=== PATIENT | female | born 1980 | race Caucasian/White ===

== ENCOUNTER 2020-02-19 05:24 | Inpatient (IN) | payer MEDICAID, SELFPAY ==
[~2020-02-19 05:24] MED LIST: Lactated Ringers 1,000 ML IV SCH; Sodium Chloride 0.9% 10 ML Syringe FLUSH PRN
[2020-02-19] MEDS ORDERED: ceFAZolin 2 GM in Premix Bag 1 BAG IV ONE (05:30)
[2020-02-19] MEDS ORDERED: Citric Acid/Sodium Citrate Solution 30 ML Cup PO ONE (05:30)
[2020-02-19] MEDS ORDERED: Oxytocin/Lactated Ringers 20 UNIT/1,000 ML BAG IV SCH (05:30)
[2020-02-19] MEDS ORDERED: Metoclopramide 10 MG/2 ML SDV IVPUSH ONE (05:30)
[2020-02-19] MEDS ORDERED: Morphine PF 1 MG/ML Amp ONE (07:11)
[2020-02-19] MEDS ORDERED: ceFAZolin 1 GM Vial ONE ×2 (07:11→07:15)
[2020-02-19] MEDS ORDERED: Phenylephrine 1% 10 MG/ML SDV ONE (07:11)
[2020-02-19] MEDS ORDERED: Bupivacaine 0.5% 30 ML SDV ONE (07:13)
[2020-02-19] MEDS ORDERED: Ketorolac 30 MG/ML SDV ONE (07:16)
[2020-02-19] MEDS ORDERED: Oxytocin 10 Units/1 ML SDV ONE (07:16)
[2020-02-19] MEDS ORDERED: Lactated Ringers 1,000 ML ONE (07:18)
[2020-02-19] MEDS ORDERED: diphenhydrAMINE 50 MG/ML SDV IVPUSH PRN ×2 (08:44→10:25)
--- NOTE | 2020-02-19 08:46 | PCM.POSTAN ---
POST ANESTHESIA ASSESSMENT - MENTAL STATUS Mental Status: Alert, Oriented - VITAL SIGNS Vital Signs: Last Vital Signs Temp 36.6 C 02/19/20 05:42 Pulse 87 02/19/20 05:42 Resp 14 02/19/20 05:42 BP 119/73 02/19/20 05:42 Pulse Ox 99 02/19/20 05:42 - RESPIRATORY Respiratory Status: Respiratory Rate WNL, Airway Patent, O2 Saturation Stable - CARDIOVASCULAR CV Status: Pulse Rate WNL, Blood Pressure Stable - GASTROINTESTINAL GI Status: No Symptoms - PAIN Pain Score: 0 - POST OP HYDRATION Hydration Status: Adequate & Stable - OBSERVATIONS Free Text/Narrative:: no anesthesia complications noted
--- NOTE | 2020-02-19 08:47 | PCM.OPNOTE ---
- General Post-Op/Procedure Note Date of Surgery/Procedure: 02/19/20 Operative Procedure(s): repeat section Findings: Viable female weight 3110 g Apgars 9 at 1 minute and 9 at 5 minutes at 0809, uterus tubes and ovaries no significant adhesions Pre Op Diagnosis: Prior desires repeat, 39+ week intrauterine Post-Op Diagnosis: Same Anesthesia Technique: Spinal Primary Surgeon: Miranda Degroot Anesthesia Provider: Ifeanyi Roach Sort Operations Supervisor: Inés Nazario Reason Sort Operations Supervisor Was Necessary: Safety, retraction Pathology: none Fluid Replacement, Intraop: 2,600 Output, Urine Amount: 40 EBL in mLs: 500 Complications: None Condition: Good Free Text/Narrative:: The patient was taken to the operating room where spinal anesthesia was dosed to surgical levels without difficulty. The patient was prepped and draped in the usual sterile fashion in the dorsal supine position with a leftward tilt. A Pfannenstiel skin incision was made with the scalpel and carried through to the underlying layer of fascia. The fascia was incised in the midline and extended laterally using Nunez scissors. Arnold clamps were used to elevate the superior aspect of the fascial incision, which was elevated, and the underlying rectus muscles were dissected off bluntly and using Nunez scissors. Attention was then turned to the inferior aspect of the fascial incision, which in similar fashion was grasped with Arnold clamps, elevated, and the underlying rectus muscles were dissected off bluntly and using the nunez. The rectus muscles were dissected in the midline. The peritoneum was entered bluntly; this incision was extended superiorly and inferiorly with good visualization of the bladder. The bladder blade was inserted. The vesicouterine peritoneum was identified and entered sharply using Metzenbaum scissors. This incision was extended laterally and the bladder flap was created digitally. The bladder blade was reinserted. The lower uterine segment was incised in a transverse fashion using the scalpel and with digital traction. Clear fluid was noted. The was subsequently delivered by flexing the head to the incision. Body and shoulders followed without difficulty. The cord was clamped and cut. The was subsequently handed to the awaiting radio control crane operator whose presence had been requested.. The placenta was delivered spontaneously intact with a three-vessel cord noted. The uterus was exteriorized and cleared of all clots and debris. The uterine incision was repaired in 2 layers using 0 monocryl. Hemostasis was visualized. Hemostasis was visualized bilaterally. The uterus was returned to the abdomen. The uterine incision was reexamined and one small area of bleeding which was rendered hemostatic with a single [id number] suture. It was then reinspected and was noted to be hemostatic. The pelvis was copiously irrigated. The fascia was closed with 1 PDS suture, and the skin was closed with 3-0 monocryl. Sponge, lap, and instrument counts were correct x2. The patient was stable at the completion of the procedure and was subsequently transferred to the recovery room in stable condition.
--- NOTE | 2020-02-19 08:47 | PCM.PREANE ---
Preanesthetic Assessment - Procedure Proposed Procedure: Repeat - Anesthesia/Transfusion/Family Hx Anesthesia History: Prior Anesthesia Without Reaction Family History of Anesthesia Reaction: No Transfusion History: No Prior Transfusion(s) - Review of Systems General: No Symptoms Pulmonary: Shortness of Breath (due to baby) Cardiovascular: Dyspnea on Exertion (with ) Gastrointestinal: No Symptoms Neurological: No Symptoms Other: Reports: None - Physical Assessment NPO Status Date: 02/18/20 NPO Status Time: 23:00 Vital Signs: Last Vital Signs Temp 36.6 C 02/19/20 05:42 Pulse 87 02/19/20 05:42 Resp 14 02/19/20 05:42 BP 119/73 02/19/20 05:42 Pulse Ox 99 02/19/20 05:42 Height: 1.52 m Weight: 90.492 kg ASA Class: 2 Mental Status: Alert & Oriented x3 Airway Class: Mallampati = 1 Dentition: Reports: Normal Dentition Thyro-Mental Finger Breadths: 3 Mouth Opening Finger Breadths: 3 ROM/Head Extension: Full Lungs: Clear to Auscultation, Normal Respiratory Effort Cardiovascular: Regular Rate, Regular Rhythm - Lab Values: Laboratory Last Values WBC 12.35 K/mm3 (3.98-10.04) H 02/19/20 05:40 RBC 4.13 M/mm3 (3.98-5.22) 02/19/20 05:40 Hgb 13.2 gm/dl (11.2-15.7) 02/19/20 05:40 Hct 39.1 % (34.1-44.9) 02/19/20 05:40 MCV 94.7 fl (79.4-94.8) 02/19/20 05:40 MCH 32.0 pg (25.6-32.2) 02/19/20 05:40 MCHC 33.8 g/dl (32.2-35.5) 02/19/20 05:40 RDW Std Deviation 42.7 fL (36.4-46.3) 02/19/20 05:40 Plt Count 251 K/mm3 (182-369) 02/19/20 05:40 MPV 11.1 fl (9.4-12.3) 02/19/20 05:40 Neut % (Auto) 68.6 % (34.0-71.1) 02/19/20 05:40 Lymph % (Auto) 19.0 % (19.3-51.7) L 02/19/20 05:40 Sharkey % (Auto) 10.0 % (4.7-12.5) 02/19/20 05:40 Eos % (Auto) 1.8 (0.7-5.8) 02/19/20 05:40 Baso % (Auto) 0.2 % (0.1-1.2) 02/19/20 05:40 Neut # (Auto) 8.47 K/mm3 (1.56-6.13) H 02/19/20 05:40 Lymph # (Auto) 2.35 K/mm3 (1.18-3.74) 02/19/20 05:40 Sharkey # (Auto) 1.23 K/mm3 (0.24-0.36) H 02/19/20 05:40 Eos # (Auto) 0.22 K/mm3 (0.04-0.36) 02/19/20 05:40 Baso # (Auto) 0.03 K/mm3 (0.01-0.08) 02/19/20 05:40 COVID-19 PCR Not detected (NOT DETECT) 02/17/20 10:30 - Allergies Allergies/Adverse Reactions: Allergies Allergy/AdvReac Type Severity Reaction Status Date / Time No Known Allergies Allergy Verified 04/30/14 13:32 CDT - Anesthesia Plan Pre-Op Medication Ordered: Antacids - Acknowledgements Anesthesia Type Planned: Spinal Pt an Appropriate Candidate for the Planned Anesthesia: Yes Alternatives and Risks of Anesthesia Discussed w Pt/Guardian: Yes Pt/Guardian Understands and Agrees with Anesthesia Plan: Yes PreAnesthesia Questionnaire HEENT History: Reports: None Gastrointestinal History: Reports: Chronic Constipation, GERD 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 Hx of Chlamydia as a teenager - Infectious Disease History Infectious Disease History: Reports: Chicken Pox - Past Surgical History HEENT Surgical History: Reports: Oral Surgery, Tonsillectomy GI Surgical History: Reports: None - SUBSTANCE USE Smoking Status *Q: Current Every Day Smoker Days Per Week of Alcohol Use: 0 Recreational Drug Use History: No - HOME MEDS Home Medications: Home Meds Nicotine [Nicoderm CQ] 14 mg TD DAILY 02/19/20 [History] Harrold-3S/DHA/Epa/Fish Oil [Harrold-3 Fish Oil 1,000 mg Sfgl] 500 mg PO BID 02/19/20 [History] polyethylene glycoL 3350 [MiraLAX] 17 gm PO DAILY 02/19/20 [History] - CURRENT (IN HOUSE) MEDS Current Meds: Current Medications Diphenhydramine HCl (Benadryl) 25 mg IVPUSH Q6H PRN PRN Reason: Itching Oxytocin/Lactated Ringer's (Pitocin In Lr 20 Units/1,000 Ml) 20 unit in 1,000 mls @ 500 mls/hr IV TITRATE GABRIELA; Protocol Lactated Ringer's (Ringers, Lactated) 1,000 mls @ 125 mls/hr IV ASDIRECTED GABRIELA Last Admin: 02/19/20 06:01 Dose: 900 mls/hr Documented by: Sodium Chloride (Saline Flush) 10 ml FLUSH ASDIRECTED PRN PRN Reason: Keep Vein Open Discontinued Medications Bupivacaine HCl (Marcaine 0.5%) Confirm Administered Dose 30 ml .ROUTE .STK-MED ONE Stop: 02/19/20 07:14 Cefazolin Sodium (Ancef) Confirm Administered Dose 2 gm .ROUTE .STK-MED ONE Stop: 02/19/20 07:12 Cefazolin Sodium (Ancef) Confirm Administered Dose 2 gm .ROUTE .STK-MED ONE Stop: 02/19/20 07:16 Citric Acid/Sodium Citrate (Bicitra Solution) 30 ml PO ONETIME ONE Stop: 02/19/20 05:31 Last Admin: 02/19/20 07:26 Dose: 30 ml Documented by: Cefazolin Sodium/Dextrose 2 gm (/ Premix) 50 mls @ 100 mls/hr IV ONETIME ONE Stop: 02/19/20 05:59 Lactated Ringer's (Ringers, Lactated) Confirm Administered Dose 1,000 mls @ as directed .ROUTE .STK-MED ONE Stop: 02/19/20 07:19 Ketorolac Tromethamine (Toradol) Confirm Administered Dose 30 mg .ROUTE .STK-MED ONE Stop: 02/19/20 07:17 Metoclopramide HCl (Reglan) 10 mg IVPUSH ONETIME ONE Stop: 02/19/20 05:31 Last Admin: 02/19/20 07:20 Dose: 10 mg Documented by: Morphine Sulfate (Duramorph Pf) Confirm Administered Dose 1 mg .ROUTE .STK-MED ONE Stop: 02/19/20 07:12 Oxytocin (Pitocin) Confirm Administered Dose 10 unit .ROUTE .STK-MED ONE Stop: 02/19/20 07:17 Phenylephrine HCl (Luis Felipe-Synephrine) Confirm Administered Dose 10 mg .ROUTE .STK- MED ONE Stop: 02/19/20 07:12
[2020-02-19] MEDS ORDERED: Naloxone 0.4 MG/ML SDV IVPUSH PRN (10:25)
[2020-02-19] MEDS ORDERED: ePHEDrine 50 MG/ML SDV IVPUSH PRN (10:25)
[2020-02-19] MEDS ORDERED: Dextrose 5%-Lactated Ringers 1,000 ML IV SCH ×2 (10:25→19:45)
[2020-02-19] MEDS ORDERED: Acetaminophen/oxyCODONE 325-5 MG Tab PO PRN (10:25)
[2020-02-19] MEDS ORDERED: Ondansetron 4 MG/2 ML SDV IVPUSH PRN (12:57)
[2020-02-19] MEDS: Ketorolac 30 MG/ML SDV IVPUSH SCH ×2 (14:33→20:53)
[2020-02-19] MEDS: Docusate Sodium 100 MG Cap PO PRN (17:02)
[2020-02-20] MEDS: Acetaminophen/oxyCODONE 325-5 MG Tab PO PRN ×3 (00:22→21:17)
[2020-02-20] MEDS: Ketorolac 30 MG/ML SDV IVPUSH SCH (02:35)
[2020-02-20] MEDS: Docusate Sodium 100 MG Cap PO PRN ×2 (05:39→17:48)
--- NOTE | 2020-02-20 07:31 | PCM48HPAN ---
Post Anesthesia Note - EVALUATION WITHIN 48HRS OF ANESTHETIC Vital Signs in Normal Range: Yes Patient Participated in Evaluation: Yes Respiratory Function Stable: Yes Airway Patent: Yes Cardiovascular Function Stable: Yes Hydration Status Stable: Yes Pain Control Satisfactory: Yes Nausea and Vomiting Control Satisfactory: Yes Mental Status Recovered: Yes Vital Signs: Last Vital Signs Temp 36.6 C 02/20/20 03:35 Pulse 82 02/20/20 03:35 Resp 14 02/20/20 06:58 BP 102/56 L 02/20/20 03:35 Pulse Ox 100 02/20/20 06:58 - COMMENTS/OBSERVATIONS Free Text/Narrative:: no anesthesia complications noted
[2020-02-20] MEDS: Ibuprofen 600 MG Tab PO PRN ×2 (07:47→17:09)
--- NOTE | 2020-02-20 07:57 | PCM.PNPP ---
- General Info Date of Service: 02/20/20 Functional Status: Reports: Pain Controlled, Tolerating Diet - Review of Systems General: Reports: No Symptoms HEENT: Reports: No Symptoms Pulmonary: Reports: No Symptoms Cardiovascular: Reports: No Symptoms Gastrointestinal: Reports: No Symptoms, Other (slight nausea, improved) Genitourinary: Reports: No Symptoms Musculoskeletal: Reports: No Symptoms Skin: Reports: No Symptoms Neurological: Reports: No Symptoms Psychiatric: Reports: No Symptoms - General Info Date of Service: 02/20/20 - Patient Data Vital Signs - Most Recent: Last Vital Signs Temp 36.6 C 02/20/20 03:35 Pulse 82 02/20/20 03:35 Resp 14 02/20/20 06:58 BP 102/56 L 02/20/20 03:35 Pulse Ox 100 02/20/20 06:58 Weight - Most Recent: 90.492 kg I&O - Last 24 Hours: Intake & Output 02/19/20 02/20/20 02/20/20 22:59 06:59 14:59 Intake Total 1780 Output Total 500 3100 Balance 1280 -3100 Lab Results - Last 24 Hours: Laboratory Results - last 24 hr 02/19/20 02/19/20 Range/Units 05:40 05:40 RPR Non-reactive (NONREACTIVE) Blood Type O POSITIVE Gel Antibody Screen Negative Med Orders - Current: Current Medications Diphenhydramine HCl (Benadryl) 25 mg IVPUSH Q6H PRN PRN Reason: Itching or Nausea Docusate Sodium (Colace) 100 mg PO BID PRN PRN Reason: Constipation Last Admin: 02/20/20 05:39 Dose: 100 mg Documented by: Ephedrine Sulfate (Ephedrine Sulfate) 5 mg IVPUSH SEECOMMENT PRN PRN Reason: Other Dextrose/Lactated Ringer's (Dextrose 5%-Lactated Ringers) 1,000 mls @ 75 mls/hr IV ASDIRECTED GABRIELA Last Admin: 02/19/20 19:51 Dose: 75 mls/hr Documented by: Ibuprofen (Motrin) 600 mg PO Q6H PRN PRN Reason: mild pain or fever Last Admin: 02/20/20 07:47 Dose: 600 mg Documented by: Naloxone HCl (Narcan) 0.1 mg IVPUSH SEECOMMENT PRN PRN Reason: Respiratory Depression Ondansetron HCl (Zofran) 4 mg IVPUSH Q8H PRN PRN Reason: Nausea/Vomiting Last Admin: 02/19/20 13:11 Dose: 4 mg Documented by: Oxycodone/Acetaminophen (Percocet 325-5 Mg) 1 tab PO Q4H PRN PRN Reason: Pain (moderate 4-6) Last Admin: 02/20/20 05:39 Dose: 1 tab Documented by: Oxycodone/Acetaminophen (Percocet 325-5 Mg) 2 tab PO Q4H PRN PRN Reason: Pain (severe 7-10) Last Admin: 02/20/20 00:22 Dose: 2 tab Documented by: Discontinued Medications Bupivacaine HCl (Marcaine 0.5%) Confirm Administered Dose 30 ml .ROUTE .STK-MED ONE Stop: 02/19/20 07:14 Last Admin: 02/19/20 08:05 Dose: 20 ml Documented by: Cefazolin Sodium (Ancef) Confirm Administered Dose 1 gm .ROUTE .STK-MED ONE Stop: 02/19/20 07:12 Cefazolin Sodium (Ancef) Confirm Administered Dose 2 gm .ROUTE .STK-MED ONE Stop: 02/19/20 07:16 Citric Acid/Sodium Citrate (Bicitra Solution) 30 ml PO ONETIME ONE Stop: 02/19/20 05:31 Last Admin: 02/19/20 07:26 Dose: 30 ml Documented by: Diphenhydramine HCl (Benadryl) 25 mg IVPUSH Q6H PRN PRN Reason: Itching Cefazolin Sodium/Dextrose 2 gm (/ Premix) 50 mls @ 100 mls/hr IV ONETIME ONE Stop: 02/19/20 05:59 Oxytocin/Lactated Ringer's (Pitocin In Lr 20 Units/1,000 Ml) 20 unit in 1,000 mls @ 500 mls/hr IV TITRATE GABRIELA; Protocol Lactated Ringer's (Ringers, Lactated) 1,000 mls @ 125 mls/hr IV ASDIRECTED GABRIELA Last Admin: 02/19/20 06:01 Dose: 900 mls/hr Documented by: Lactated Ringer's (Ringers, Lactated) Confirm Administered Dose 1,000 mls @ as directed .ROUTE .STK-MED ONE Stop: 02/19/20 07:19 Dextrose/Lactated Ringer's (Dextrose 5%-Lactated Ringers) 1,000 mls @ 125 mls/hr IV ASDIRECTED GABRIELA Stop: 02/19/20 18:24 Last Admin: 02/19/20 11:01 Dose: 125 mls/hr Documented by: Ketorolac Tromethamine (Toradol) Confirm Administered Dose 30 mg .ROUTE .STK-MED ONE Stop: 02/19/20 07:17 Ketorolac Tromethamine (Toradol) 30 mg IVPUSH Q6H GABRIELA Stop: 02/20/20 02:31 Last Admin: 02/20/20 02:35 Dose: 30 mg Documented by: Metoclopramide HCl (Reglan) 10 mg IVPUSH ONETIME ONE Stop: 02/19/20 05:31 Last Admin: 02/19/20 07:20 Dose: 10 mg Documented by: Morphine Sulfate (Duramorph Pf) Confirm Administered Dose 1 mg .ROUTE .STK-MED ONE Stop: 02/19/20 07:12 Oxytocin (Pitocin) Confirm Administered Dose 10 unit .ROUTE .STK-MED ONE Stop: 02/19/20 07:17 Phenylephrine HCl (Luis Felipe-Synephrine) Confirm Administered Dose 10 mg .ROUTE .STK- MED ONE Stop: 02/19/20 07:12 Sodium Chloride (Saline Flush) 10 ml FLUSH ASDIRECTED PRN PRN Reason: Keep Vein Open - Interaction Disposition, : in Room with Family Support Person: Significant Other - Recovery Exam Fundal Tone: Firm Fundal Level: At Umbilicus Fundal Placement: Midline Lochia Amount: Moderate Lochia Color: Rubra/Red Perineum Description: Intact, Minimal Bruising/Swelling Bladder Status: Indwelling Catheter in Place Urinary Elimination: Other (see below) Other Urinary Elimination, : Removed indwelling catheter. - Exam General: Alert, Oriented HEENT: Pupils Equal Neck: Supple Lungs: Clear to Auscultation, Normal Respiratory Effort Cardiovascular: Regular Rate, Regular Rhythm GI/Abdominal Exam: Normal Bowel Sounds, Soft, Non-Tender, No Organomegaly, Distended (slightly) Extremities: Normal Inspection, Normal Range of Motion, Non-Tender, No Pedal Edema, Normal Capillary Refill Skin: Warm, Dry, Intact Wound/Incisions: Healing Well Neurological: No New Focal Deficit Psy/Mental Status: Alert, Normal Affect, Normal Mood - Problem List Review Problem List Initiated/Reviewed/Updated: Yes - My Orders Last 24 Hours: My Active Orders 02/19/20 10:25 Acetaminophen/oxyCODONE [Percocet 325-5 MG] 1 tab PO Q4H PRN Acetaminophen/oxyCODONE [Percocet 325-5 MG] 2 tab PO Q4H PRN Naloxone [Narcan] 0.1 mg IVPUSH SEECOMMENT PRN diphenhydrAMINE [Benadryl] 25 mg IVPUSH Q6H PRN ePHEDrine [ePHEDrine sulfate] 5 mg IVPUSH SEECOMMENT PRN 02/19/20 10:25 Antiembolic Devices [RC] PER UNIT ROUTINE Communication Order [RC] PER UNIT ROUTINE Communication Order [RC] PER UNIT ROUTINE Notify Provider Intake and Out [RC] ASDIRECTED Vital Signs [RC] Q1HR Consult to Spiritual Care [CONS] Routine Abdominal Binder [OM.PC] Per Unit Routine Assess Lochia [WOMSER] Per Unit Routine Assess Uterine Involution [WOMSER] Per Unit Routine Medication Administration Instruction [OM.PC] Routine Sequential Compression Device [OM.PC] Per Unit Routine 02/19/20 Lunch Regular Diet [DIET] 02/19/20 12:57 Ondansetron [Zofran] 4 mg IVPUSH Q8H PRN 02/19/20 16:36 Docusate Sodium [Colace] 100 mg PO BID PRN 02/19/20 19:45 Dextrose 5%-Lactated Ringers 1,000 ml IV ASDIRECTED 02/20/20 08:30 Ibuprofen [Motrin] 600 mg PO Q6H PRN 02/20/20 08:48 Urinary Catheter Removal [RC] Per Unit Routine - Assessment Assessment:: POD1 Doing great Routine care
[2020-02-20] MEDS ORDERED: Bisacodyl 10 MG Supp RECTAL ONE (19:40)
[2020-02-21] MEDS: Ibuprofen 600 MG Tab PO PRN ×3 (00:47→20:19)
--- NOTE | 2020-02-21 07:00 | PCM.PNPP ---
- General Info Date of Service: 02/21/20 Functional Status: Reports: Pain Controlled - Review of Systems General: Reports: No Symptoms HEENT: Reports: No Symptoms Pulmonary: Reports: No Symptoms Cardiovascular: Reports: No Symptoms Gastrointestinal: Reports: Constipation, Flatus Genitourinary: Reports: No Symptoms Musculoskeletal: Reports: No Symptoms Skin: Reports: No Symptoms Neurological: Reports: No Symptoms Psychiatric: Reports: No Symptoms - General Info Date of Service: 02/21/20 - Patient Data Vital Signs - Most Recent: Last Vital Signs Temp 36.7 C 02/20/20 20:16 Pulse 81 02/20/20 20:16 Resp 16 02/20/20 20:16 BP 147/78 H 02/20/20 20:16 Pulse Ox 96 02/20/20 20:16 Weight - Most Recent: 90.492 kg I&O - Last 24 Hours: Intake & Output 02/20/20 02/20/20 02/21/20 14:59 22:59 06:59 Intake Total 940 Output Total 800 Balance 140 Med Orders - Current: Current Medications Diphenhydramine HCl (Benadryl) 25 mg IVPUSH Q6H PRN PRN Reason: Itching or Nausea Docusate Sodium (Colace) 100 mg PO BID PRN PRN Reason: Constipation Last Admin: 02/20/20 17:48 Dose: 100 mg Documented by: Ephedrine Sulfate (Ephedrine Sulfate) 5 mg IVPUSH SEECOMMENT PRN PRN Reason: Other Dextrose/Lactated Ringer's (Dextrose 5%-Lactated Ringers) 1,000 mls @ 75 mls/hr IV ASDIRECTED [facility] Last Admin: 02/19/20 19:51 Dose: 75 mls/hr Documented by: Ibuprofen (Motrin) 600 mg PO Q6H PRN PRN Reason: mild pain or fever Last Admin: 02/21/20 00:47 Dose: 600 mg Documented by: Naloxone HCl (Narcan) 0.1 mg IVPUSH SEECOMMENT PRN PRN Reason: Respiratory Depression Ondansetron HCl (Zofran) 4 mg IVPUSH Q8H PRN PRN Reason: Nausea/Vomiting Last Admin: 02/19/20 13:11 Dose: 4 mg Documented by: Oxycodone/Acetaminophen (Percocet 325-5 Mg) 1 tab PO Q4H PRN PRN Reason: Pain (moderate 4-6) Last Admin: 02/20/20 05:39 Dose: 1 tab Documented by: Oxycodone/Acetaminophen (Percocet 325-5 Mg) 2 tab PO Q4H PRN PRN Reason: Pain (severe 7-10) Last Admin: 02/20/20 21:17 Dose: 2 tab Documented by: Discontinued Medications Bisacodyl (Dulcolax) 10 mg RECTAL ONETIME ONE Stop: 02/20/20 19:41 Last Admin: 02/20/20 19:53 Dose: 10 mg Documented by: Bupivacaine HCl (Marcaine 0.5%) Confirm Administered Dose 30 ml .ROUTE .STK-MED ONE Stop: 02/19/20 07:14 Last Admin: 02/19/20 08:05 Dose: 20 ml Documented by: Cefazolin Sodium (Ancef) Confirm Administered Dose 1 gm .ROUTE .STK-MED ONE Stop: 02/19/20 07:12 Cefazolin Sodium (Ancef) Confirm Administered Dose 2 gm .ROUTE .STK-MED ONE Stop: 02/19/20 07:16 Citric Acid/Sodium Citrate (Bicitra Solution) 30 ml PO ONETIME ONE Stop: 02/19/20 05:31 Last Admin: 02/19/20 07:26 Dose: 30 ml Documented by: Diphenhydramine HCl (Benadryl) 25 mg IVPUSH Q6H PRN PRN Reason: Itching Cefazolin Sodium/Dextrose 2 gm (/ Premix) 50 mls @ 100 mls/hr IV ONETIME ONE Stop: 02/19/20 05:59 Oxytocin/Lactated Ringer's (Pitocin In Lr 20 Units/1,000 Ml) 20 unit in 1,000 mls @ 500 mls/hr IV TITRATE GABRIELA; Protocol Lactated Ringer's (Ringers, Lactated) 1,000 mls @ 125 mls/hr IV ASDIRECTED GABRIELA Last Admin: 02/19/20 06:01 Dose: 900 mls/hr Documented by: Lactated Ringer's (Ringers, Lactated) Confirm Administered Dose 1,000 mls @ as directed .ROUTE .STK-MED ONE Stop: 02/19/20 07:19 Dextrose/Lactated Ringer's (Dextrose 5%-Lactated Ringers) 1,000 mls @ 125 mls/hr IV ASDIRECTED GABRIELA Stop: 02/19/20 18:24 Last Admin: 02/19/20 11:01 Dose: 125 mls/hr Documented by: Ketorolac Tromethamine (Toradol) Confirm Administered Dose 30 mg .ROUTE .STK-MED ONE Stop: 02/19/20 07:17 Ketorolac Tromethamine (Toradol) 30 mg IVPUSH Q6H GABRIELA Stop: 02/20/20 02:31 Last Admin: 02/20/20 02:35 Dose: 30 mg Documented by: Metoclopramide HCl (Reglan) 10 mg IVPUSH ONETIME ONE Stop: 02/19/20 05:31 Last Admin: 02/19/20 07:20 Dose: 10 mg Documented by: Morphine Sulfate (Duramorph Pf) Confirm Administered Dose 1 mg .ROUTE .STK-MED ONE Stop: 02/19/20 07:12 Oxytocin (Pitocin) Confirm Administered Dose 10 unit .ROUTE .STK-MED ONE Stop: 02/19/20 07:17 Phenylephrine HCl (Luis Felipe-Synephrine) Confirm Administered Dose 10 mg .ROUTE .STK- MED ONE Stop: 02/19/20 07:12 Sodium Chloride (Saline Flush) 10 ml FLUSH ASDIRECTED PRN PRN Reason: Keep Vein Open - Interaction Infant Disposition, : in Room with Family Support Person: Significant Other - Recovery Exam Fundal Tone: Firm Fundal Level: 1 Fingerbreadths Below Umbilicus Fundal Placement: Midline Lochia Amount: Small Lochia Color: Rubra/Red Perineum Description: Intact, Minimal Bruising/Swelling Episiotomy/Laceration: None Bladder Status: Voiding Urinary Elimination: Voided Other Urinary Elimination, : Removed indwelling catheter. - Exam General: Alert, Oriented HEENT: Pupils Equal Neck: Supple Lungs: Clear to Auscultation, Normal Respiratory Effort Cardiovascular: Regular Rate, Regular Rhythm GI/Abdominal Exam: Normal Bowel Sounds, Soft, Non-Tender, No Organomegaly, No Distention, No Abnormal Bruit, No Mass, Pelvis Stable Extremities: Normal Inspection, Normal Range of Motion, Non-Tender, No Pedal Edema, Normal Capillary Refill Neurological: No New Focal Deficit Psy/Mental Status: Alert, Normal Affect, Normal Mood - Problem List Review Problem List Initiated/Reviewed/Updated: Yes - My Orders Last 24 Hours: My Active Orders 02/20/20 08:30 Ibuprofen [Motrin] 600 mg PO Q6H PRN 02/20/20 08:48 Urinary Catheter Removal [RC] Per Unit Routine - Assessment Assessment:: POD2 Doing well. Some constipation. Had a suppository last night. Some relief. Distension improved. Probable discharge home tomorrow.
[2020-02-21] MEDS: Acetaminophen/oxyCODONE 325-5 MG Tab PO PRN ×3 (08:21→18:41)
[2020-02-21] MEDS: Docusate Sodium 100 MG Cap PO PRN (08:24)
[2020-02-21] MEDS ORDERED: Bisacodyl 10 MG Supp RECTAL ONE ×2 (14:11→20:15)
[2020-02-21] MEDS: Simethicone 80 MG Tab.Chew PO PRN ×2 (14:46→20:19)
[2020-02-21] MEDS ORDERED: Witch Hazel Medicated Pads 40/Jar TOP PRN (20:16)
[2020-02-22] MEDS: Acetaminophen/oxyCODONE 325-5 MG Tab PO PRN ×2 (01:50→09:28)
[2020-02-22] MEDS: Ibuprofen 600 MG Tab PO PRN (05:33)
[2020-02-22] MEDS: Simethicone 80 MG Tab.Chew PO PRN (09:28)
--- NOTE | 2020-02-22 10:12 | PCM.DCSUM1 ---
Discharge Summary - Hospital Course Free Text/Narrative:: [place] [facility] Post-Op/Procedure Note Patient Name: ZE KHAN Date of : 84 Patient Status: Inpatient Attending Provider: Miranda Degroot Date: 02/19/20 08:44 Initialization Date: 02/19/20 08:44 - General Post-Op/Procedure Note Date of Surgery/Procedure: 02/19/20 Operative Procedure(s): repeat section Findings: Viable female weight 3110 g Apgars 9 at 1 minute and 9 at 5 minutes at 0809, uterus tubes and ovaries no significant adhesions Pre Op Diagnosis: Prior desires repeat, 39+ week intrauterine Post-Op Diagnosis: Same Anesthesia Technique: Spinal Primary Surgeon: Miranda Degroot Anesthesia Provider: Ifeanyi Roach Utility Maintenance Worker: Inés Nazario Reason Utility Maintenance Worker Was Necessary: Safety, retraction Pathology: none Fluid Replacement, Intraop: 2,600 Output, Urine Amount: 40 EBL in mLs: 500 Complications: None Condition: Good Free Text/Narrative:: The patient was taken to the operating room where spinal anesthesia was dosed to surgical levels without difficulty. The patient was prepped and draped in the usual sterile fashion in the dorsal supine position with a leftward tilt. A Pfannenstiel skin incision was made with the scalpel and carried through to the underlying layer of fascia. The fascia was incised in the midline and extended laterally using Nunez scissors. Arnold clamps were used to elevate the superior aspect of the fascial incision, which was elevated, and the underlying rectus muscles were dissected off bluntly and using Nunez scissors. Attention was then turned to the inferior aspect of the fascial incision, which in similar fashion was grasped with Arnold clamps, elevated, and the underlying rectus muscles were dissected off bluntly and using the nunez. The rectus muscles were dissected in the midline. The peritoneum was entered bluntly; this incision was extended superiorly and inferiorly with good visualization of the bladder. The bladder blade was inserted. The vesicouterine peritoneum was identified and entered sharply using Metzenbaum scissors. This incision was extended laterally and the bladder flap was created digitally. The bladder blade was reinserted. The lower uterine segment was incised in a transverse fashion using the scalpel and with digital traction. Clear fluid was noted. The was subsequently delivered by flexing the head to the incision. Body and shoulders followed without difficulty. The cord was clamped and cut. The was subsequently handed to the awaiting remelt sugar boiler whose presence had been requested.. The placenta was delivered spontaneously intact with a three-vessel cord noted. The uterus was exteriorized and cleared of all clots and debris. The uterine incision was repaired in 2 layers using 0 monocryl. Hemostasis was visualized. Hemostasis was visualized bilaterally. The uterus was returned to the abdomen. The uterine incision was reexamined and one small area of bleeding which was rendered hemostatic with a single [id number] suture. It was then reinspected and was noted to be hemostatic. The pelvis was copiously irrigated. The fascia was closed with 1 PDS suture, and the skin was closed with 3-0 monocryl. Sponge, lap, and instrument counts were correct x2. The patient was stable at the completion of the procedure and was subsequently transferred to the recovery room in stable condition. HPI Initial Comments: [place] [facility] Post-Op/Procedure Note Patient Name: ZE KHAN Date of : 84 Patient Status: Inpatient Attending Provider: Miranda Degroot Date: 02/19/20 08:44 Initialization Date: 02/19/20 08:44 - General Post-Op/Procedure Note Date of Surgery/Procedure: 02/19/20 Operative Procedure(s): repeat section Findings: Viable female weight 3110 g Apgars 9 at 1 minute and 9 at 5 minutes at 0809, uterus tubes and ovaries no significant adhesions Pre Op Diagnosis: Prior desires repeat, 39+ week intrauterine Post-Op Diagnosis: Same Anesthesia Technique: Spinal Primary Surgeon: Miranda Degroot Anesthesia Provider: Ifeanyi Roach Utility Maintenance Worker: Inés Nazario Reason Utility Maintenance Worker Was Necessary: Safety, retraction Pathology: none Fluid Replacement, Intraop: 2,600 Output, Urine Amount: 40 EBL in mLs: 500 Complications: None Condition: Good Free Text/Narrative:: The patient was taken to the operating room where spinal anesthesia was dosed to surgical levels without difficulty. The patient was prepped and draped in the usual sterile fashion in the dorsal supine position with a leftward tilt. A Pfannenstiel skin incision was made with the scalpel and carried through to the underlying layer of fascia. The fascia was incised in the midline and extended laterally using Nunez scissors. Arnold clamps were used to elevate the superior aspect of the fascial incision, which was elevated, and the underlying rectus muscles were dissected off bluntly and using Nunez scissors. Attention was then turned to the inferior aspect of the fascial incision, which in similar fashion was grasped with Arnold clamps, elevated, and the underlying rectus muscles were dissected off bluntly and using the nunez. The rectus muscles were dissected in the midline. The peritoneum was entered bluntly; this incision was extended superiorly and inferiorly with good visualization of the bladder. The bladder blade was inserted. The vesicouterine peritoneum was identified and entered sharply using Metzenbaum scissors. This incision was extended laterally and the bladder flap was created digitally. The bladder blade was reinserted. The lower uterine segment was incised in a transverse fashion using the scalpel and with digital traction. Clear fluid was noted. The infant was subsequently delivered by flexing the head to the incision. Body and shoulders followed without difficulty. The cord was clamped and cut. The was subsequently handed to the awaiting remelt sugar boiler whose presence had been requested.. The placenta was delivered spontaneously intact with a three-vessel cord noted. The uterus was exteriorized and cleared of all clots and debris. The uterine incision was repaired in 2 layers using 0 monocryl. Hemostasis was visualized. Hemostasis was visualized bilaterally. The uterus was returned to the abdomen. The uterine incision was reexamined and one small area of bleeding which was rendered hemostatic with a single [id number]-[id number] suture. It was then reinspected and was noted to be hemostatic. The pelvis was copiously irrigated. The fascia was closed with 1 PDS suture, and the skin was closed with 3-0 monocryl. Sponge, lap, and instrument counts were correct x2. The patient was stable at the completion of the procedure and was subsequently transferred to the recovery room in stable condition. Brief History: [facility] . Post-Op/Procedure Note. [facility]: [id number]. Date of : 84Patient Status: Inpatient. Attending Provider: Miranda DegrootAccount Number: [id number]. Date: 02/19/20 08:44Initialization Date: 02/19/20 08:44. - General Post-Op/Procedure Note. Date of Surgery/Procedure: 02/19/20. Operative Procedure(s): repeat section. Findings: Viable female weight 3110 g Apgars 9 at 1 minute and 9 at 5 minutes at 0809, uterus tubes and ovaries no significant adhesions. Pre Op Diagnosis: Prior desires repeat, 39+ week intrauterine . Post-Op Diagnosis: Same. Anesthesia Technique: Spinal. Primary Surgeon: Miranda Degroot. Anesthesia Provider: Ifeanyi Roach. Utility Maintenance Worker: Inés Nazario Reason Utility Maintenance Worker Was Necessary: Safety, retraction. Pathology: none. Fluid Replacement, Intraop: 2,600. Output, Urine Amount: 40. EBL in mLs: 500. Complications: None. Condition: Good. Free Text/Narrative:: The patient was taken to the operating room where spinal anesthesia was dosed to surgical levels without difficulty. The patient was prepped and draped in the usual sterile fashion in the dorsal supine position with a leftward tilt. A Pfannenstiel skin incision was made with the scalpel and carried through to the underlying layer of fascia. The fascia was incised in the midline and extended laterally using Nunez scissors. Arnold clamps were used to elevate the superior aspect of the fascial incision, which was elevated, and the underlying rectus muscles were dissected off bluntly and using Nunez scissors. Attention was then turned to the inferior aspect of the fascial incision, which in similar fashion was grasped with Arnold clamps, elevated, and the underlying rectus muscles were dissected off bluntly and using the nunez. The rectus muscles were dissected in the midline. The peritoneum was entered bluntly; this incision was extended superiorly and inferiorly with good visualization of the bladder. The bladder blade was inserted. The vesicouterine peritoneum was identified and entered sharply using Metzenbaum scissors. This incision was extended laterally and the bladder flap was created digitally. The bladder blade was reinserted. The lower uterine segment was incised in a transverse fashion using the scalpel and with digital traction. Clear fluid was noted. The infant was subsequently delivered by flexing the head to the incision. Body and shoulders followed without difficulty. The cord was clamped and cut. The was subsequently handed to the awaiting remelt sugar boiler whose presence had been requested.. The placenta was delivered spontaneously intact with a three-vessel cord noted. The uterus was exteriorized and cleared of all clots and debris. The uterine incision was repaired in 2 layers using 0 monocryl. Hemostasis was visualized. Hemostasis was visualized bilaterally. The uterus was returned to the abdomen. The uterine incision was reexamined and one small area of bleeding which was rendered hemostatic with a single [id number]-[id number] suture. It was then reinspected and was noted to be hemostatic. The pelvis was copiously irrigated. The fascia was closed with 1 PDS suture, and the skin was closed with 3-0 monocryl. Sponge, lap, and instrument counts were correct x2. The patient was stable at the completion of the procedure and was subsequently transferred to the recovery room in stable condition. Diagnosis: Stroke: No - Discharge Data Discharge Date: 02/22/20 Discharge Disposition: Home, Self-Care 01 Condition: Good - Referral to Home Health Primary Care Physician: Chris Romano MD - Discharge Diagnosis/Problem(s) (1) delivery, delivered, current hospitalization SNOMED Code(s): 406424384 ICD Code: O82 - ENCOUNTER FOR DELIVERY WITHOUT INDICATION Status: Acute Current Visit: Yes - Patient Summary/Data Operative Procedure(s) Performed: repeat section Complications: None Consults: Consultations 02/19/20 10:25 Consult to Spiritual Care [CONS] Routine Hospital Course: Uneventful - Patient Instructions Diet: Usual Diet as Tolerated Driving: Do Not Drive ([id number]) Showering/Bathing: May Shower, No Tub Bathing/Swimming (x6 weeks) Wound/Incision Care: Keep Operative Site/Wound Site Clean and Dry Notify Provider of: Fever, Increased Pain, Swelling and Redness, Drainage, Nausea and/or Vomiting - Discharge Plan *PRESCRIPTION DRUG MONITORING PROGRAM REVIEWED*: No Home Medications: Home Meds Nicotine [Nicoderm CQ] 14 mg TD DAILY 02/19/20 [History] [place]-3S/DHA/Epa/Fish Oil [[place]-3 Fish Oil 1,000 mg Sfgl] 500 mg PO BID 06/24/20 [History] polyethylene glycoL 3350 [MiraLAX] 17 gm PO DAILY 02/19/20 [History] Docusate Sodium [Colace] 100 mg PO BID PRN cap 02/22/20 [Rx] Ibuprofen [Motrin] 600 mg PO Q6H PRN tablet 02/22/20 [Rx] Simethicone 160 mg PO ASDIRECTED PRN tab.chew 02/22/20 [Rx] Patient Handouts: Steps to Quit Smoking - Discharge Summary/Plan Comment DC Time >30 min.: No Discharge Summary/Plan Comment: Pain medication sent electronically by Dr. Coleman yesterday. - Patient Data Vitals - Most Recent: Last Vital Signs Temp 98.1 F 02/22/20 02:46 Pulse 67 02/22/20 02:46 Resp 16 02/22/20 02:46 BP 111/70 02/22/20 02:46 Pulse Ox 96 02/22/20 02:46 Weight - Most Recent: 199 lb 8 oz Med Orders - Current: Current Medications Diphenhydramine HCl (Benadryl) 25 mg IVPUSH Q6H PRN PRN Reason: Itching or Nausea Docusate Sodium (Colace) 100 mg PO BID PRN PRN Reason: Constipation Last Admin: 02/21/20 08:24 Dose: 100 mg Documented by: Ephedrine Sulfate (Ephedrine Sulfate) 5 mg IVPUSH SEECOMMENT PRN PRN Reason: Other Dextrose/Lactated Ringer's (Dextrose 5%-Lactated Ringers) 1,000 mls @ 75 mls/hr IV ASDIRECTED GABRIELA Last Admin: 02/19/20 19:51 Dose: 75 mls/hr Documented by: Ibuprofen (Motrin) 600 mg PO Q6H PRN PRN Reason: mild pain or fever Last Admin: 02/22/20 05:33 Dose: 600 mg Documented by: Naloxone HCl (Narcan) 0.1 mg IVPUSH SEECOMMENT PRN PRN Reason: Respiratory Depression Ondansetron HCl (Zofran) 4 mg IVPUSH Q8H PRN PRN Reason: Nausea/Vomiting Last Admin: 02/19/20 13:11 Dose: 4 mg Documented by: Oxycodone/Acetaminophen (Percocet 325-5 Mg) 1 tab PO Q4H PRN PRN Reason: Pain (moderate 4-6) Last Admin: 02/20/20 05:39 Dose: 1 tab Documented by: Oxycodone/Acetaminophen (Percocet 325-5 Mg) 2 tab PO Q4H PRN PRN Reason: Pain (severe 7-10) Last Admin: 02/22/20 09:28 Dose: 2 tab Documented by: Simethicone (Simethicone) 160 mg PO ASDIRECTED PRN PRN Reason: Gas Last Admin: 02/22/20 09:28 Dose: 160 mg Documented by: Kirk Pelayo ([place]) 1 pad TOP ASDIRECTED PRN PRN Reason: Hemorrhoids Last Admin: 02/21/20 21:44 Dose: 1 applic Documented by: Discontinued Medications Bisacodyl (Dulcolax) 10 mg RECTAL ONETIME ONE Stop: 02/20/20 19:41 Last Admin: 02/20/20 19:53 Dose: 10 mg Documented by: Bisacodyl (Dulcolax) 10 mg RECTAL ONETIME ONE Stop: 02/21/20 14:12 Last Admin: 02/21/20 20:19 Dose: Not Given Documented by: Bisacodyl (Dulcolax) 10 mg RECTAL ONETIME ONE Stop: 02/21/20 20:16 Last Admin: 02/21/20 20:19 Dose: 10 mg Documented by: Bupivacaine HCl (Marcaine 0.5%) Confirm Administered Dose 30 ml .ROUTE .STK-MED ONE Stop: 02/19/20 07:14 Last Admin: 02/19/20 08:05 Dose: 20 ml Documented by: Cefazolin Sodium (Ancef) Confirm Administered Dose 1 gm .ROUTE .STK-MED ONE Stop: 02/19/20 07:12 Cefazolin Sodium (Ancef) Confirm Administered Dose 2 gm .ROUTE .STK-MED ONE Stop: 02/19/20 07:16 Citric Acid/Sodium Citrate (Bicitra Solution) 30 ml PO ONETIME ONE Stop: 02/19/20 05:31 Last Admin: 02/19/20 07:26 Dose: 30 ml Documented by: Diphenhydramine HCl (Benadryl) 25 mg IVPUSH Q6H PRN PRN Reason: Itching Cefazolin Sodium/Dextrose 2 gm (/ Premix) 50 mls @ 100 mls/hr IV ONETIME ONE Stop: 02/19/20 05:59 Last Admin: 02/21/20 09:52 Dose: Not Given Documented by: Oxytocin/Lactated Ringer's (Pitocin In Lr 20 Units/1,000 Ml) 20 unit in 1,000 mls @ 500 mls/hr IV TITRATE GABRIELA; Protocol Lactated Ringer's (Ringers, Lactated) 1,000 mls @ 125 mls/hr IV ASDIRECTED GABRIELA Last Admin: 02/19/20 06:01 Dose: 900 mls/hr Documented by: Lactated Ringer's (Ringers, Lactated) Confirm Administered Dose 1,000 mls @ as directed .ROUTE .STK-MED ONE Stop: 02/19/20 07:19 Dextrose/Lactated Ringer's (Dextrose 5%-Lactated Ringers) 1,000 mls @ 125 mls/hr IV ASDIRECTED [facility] Stop: 02/19/20 18:24 Last Admin: 02/19/20 11:01 Dose: 125 mls/hr Documented by: Ketorolac Tromethamine (Toradol) Confirm Administered Dose 30 mg .ROUTE .STK-MED ONE Stop: 02/19/20 07:17 Ketorolac Tromethamine (Toradol) 30 mg IVPUSH Q6H [facility] Stop: 02/20/20 02:31 Last Admin: 02/20/20 02:35 Dose: 30 mg Documented by: Metoclopramide HCl (Reglan) 10 mg IVPUSH ONETIME ONE Stop: 02/19/20 05:31 Last Admin: 02/19/20 07:20 Dose: 10 mg Documented by: Morphine Sulfate (Duramorph Pf) Confirm Administered Dose 1 mg .ROUTE .STK-MED ONE Stop: 02/19/20 07:12 Oxytocin (Pitocin) Confirm Administered Dose 10 unit .ROUTE .STK-MED ONE Stop: 02/19/20 07:17 Phenylephrine HCl (Luis Felipe-Synephrine) Confirm Administered Dose 10 mg .ROUTE .STK- MED ONE Stop: 02/19/20 07:12 Sodium Chloride (Saline Flush) 10 ml FLUSH ASDIRECTED PRN PRN Reason: Keep Vein Open
[2020-02-22 10:33] VITALS: BP 124/82; PULSE 77
== END 2020-02-22 11:45 | disposition home or self-care (01) | DRG 788 ==
LOC: JD.OB 05:24
PROVIDERS: ADMIT Obstetrics & Gynecology; ATTEND Obstetrics & Gynecology
PROC: 10D00Z1 Extraction of Products of Conception, Low, Open Approach (ICD-10-PCS; principal; 2020-02-19)
DX: O34.211 Maternal care for low transverse scar from previous cesarean delivery (principal); Z3A.37 37 weeks gestation of pregnancy; Z37.0 Single live birth
CPT/HCPCS: 01961; 36415; 59025; 85025; 86592; 86850; 86900; 86901; A9270-GY; J0690; J1885; J2274; J2370; J2405; J2590; J2765; J3490; J7120; J7121; U0002